=== PATIENT | female | born 1965 | race Caucasian/White ===

== ENCOUNTER 2020-09-28 10:08 | Emergency (ER) | payer OTHER ==
[~2020-09-28] VITALS: Ht 167.6 cm; Wt 99.8 kg
[2020-09-28] MEDS ORDERED: ONDANSETRON HCL INJ 2MG/ML 2ML 2 MG/ML VIAL IV STA (11:08)
[2020-09-28] MEDS ORDERED: KETOROLAC TROMETHAMINE 30 MG/ML VIAL IV STA (11:08)
[2020-09-28] MEDS ORDERED: SODIUM CHLORIDE 0.9% 1000ML 1,000 ML IV STA (11:08)
[2020-09-28] MEDS ORDERED: SODIUM CHLORIDE FLUSH 10 ML SYR INJ PRN (11:15)
[2020-09-28] MEDS ORDERED: IOPAMIDOL 370 MG/ML 200 ML INFUS..BTL INJ ONE (11:25)
[2020-09-28] MEDS ORDERED: SODIUM CHLORIDE 0.9% 50ML 50 ML ONE (11:26)
[2020-09-28] MEDS ORDERED: MORPHINE SULFATE INJ 4 MG/ML INJ 1ML ONE (11:27)
[2020-09-28] MEDS ORDERED: KETOROLAC TROMETHAMINE 30 MG/ML VIAL ONE (11:27)
[2020-09-28] MEDS ORDERED: MORPHINE SULFATE INJ 4 MG/ML INJ 1ML IV ONE (11:45)
--- NOTE | 2020-09-28 11:53 | NUR ---
PT DID NOT WANT TO CHANGE TO GOWN, PT ONLY WANTED IV IN SPOT SHE WAS "POINTING TOO" WHICH WAS DONE FOR PT SATISFACTION WITH ONE STICK SUCCESSFUL TO LEFT LATERAL AC. PT VERY DEMANDING TO BED POSITION, BLANKET POSITION. PT STATING THAT HER PAIN IS WORSE THAN "ANY OTHER PERSON ALIVE ARIGHT NOW." PT WITH EYES CLOSED RESTING COMFORTABLLY. APPEARS IN NO DISTRESS.
--- NOTE | 2020-09-28 12:51 | Diagnostic Imaging Report ---
EXAM: CT Abdomen and Pelvis WITHOUT contrast INDICATION: Sharp pain in the right lower quadrant COMPARISON: None. TECHNIQUE: Abdomen and pelvis were scanned utilizing a multidetector helical scanner from the lung base to the pubic symphysis without administration of IV contrast. Absence of intravenous contrast decreases sensitivity for detection of focal lesions and vascular pathology. Coronal and sagittal reformations were obtained. Routine protocol was performed. IV CONTRAST: None ORAL CONTRAST: None COMPLICATIONS: None RADIATION DOSE: Total DLP: 814 mGy*cm Estimated effective dose: (DLP x 0.015 x size factor) mSv CTDIvol has been reviewed. It is below the limits set by the Radiation Protocol Committee (RPC). Dose modulation, iterative reconstruction, and/or weight based adjustment of the mA/kV was utilized to reduce the radiation dose to as low as reasonably achievable. FINDINGS: LINES and TUBES: None. LOWER THORAX: There is small bilateral pleural effusion with superimposed bibasilar atelectasis. There is mild to moderate cardiomegaly. HEPATOBILIARY: No focal hepatic lesions. No biliary ductal dilation. GALLBLADDER: There are cholecystectomy clips. SPLEEN: No splenomegaly. PANCREAS: No focal masses or ductal dilatation. ADRENALS: No adrenal nodules KIDNEYS/URETERS: No hydronephrosis. No cystic or solid mass lesions. No stones. There is nonspecific bilateral perinephric fat stranding. GI TRACT: No abnormal distention, wall thickening, or evidence of bowel obstruction. There are diverticula within the colon without evidence of diverticulitis. Appendix is normal. PELVIC ORGANS/BLADDER: Unremarkable. LYMPH NODES: No lymphadenopathy. VESSELS: There is moderate atherosclerotic disease in the aorta and major arterial branches. PERITONEUM / RETROPERITONEUM: There is diffuse ed appearance of the mesenteric fat. No free air or fluid. Linear hypodensity in the right lower quadrant (series 301 image 47) likely represents dropped cholecystectomy clips. BONES: There are degenerative changes in the spine. SOFT TISSUES: There is diffuse anarsarca. IMPRESSION: 1. No acute intra-abdominal findings identified. No obstructive renal or ureteral stones bilaterally. 2. Partially imaged heart demonstrates cardiomegaly with findings suggestive of fluid overload state: Small bilateral pleural effusion, diffuse anasarca and ed appearance of the mesenteric fat likely from vascular engorgement/congestion. Signed by: Abram Sorenson MD on 09/28/2020 12:47 PM
--- NOTE | 2020-09-28 12:58 | Emergency Department Note ---
History of Present Illnes History of Present Illness Chief Complaint: rlq pain History of Present Illness This is a 55 year old female. was doing well until 5 months ago then fell then every since pt had ambulatory dysfunction. then intermittent chronic rlq pain then 1 week ago gradual onset of rlq pain Historian: Patient Arrival Mode: Car History limited by: condition of the patient (normal) Bone Tender Required: No Onset (how long ago): week(s) (1) Location: see above Quality: sharp Radiation: Reports non-radiation, Reports back Severity: moderate Onset quality: gradual Duration (how long): week(s) (1) Timing of current episode: constant Progression: worsening Chronicity: recurrent Context: Denies recent illness, Denies recent surgery, Denies recent immobilization, Denies recent travel, Denies trauma/injury, Denies new medications, Denies hx of DVT/PE, Denies non-compliance w/ medications Relieving factors: rest Exacerbating factors: movement Associated symptoms: Reports malaise Treatments prior to arrival: none Past Medical/Family History Physician Review I have reviewed the patient's past medical and family history. Any updates have been documented here. Past Medical History Recent Fever: No Clinical Suspicion of Infectio: No New/Unexplained Change in Ment: No Past Medical History: Hypertension, Hypothyroidism Past Surgical History: None Social History Smoking Cessation: Unknown if ever smoked Counseling Performed: No Alcohol Use: None Any Illegal Drug Use: No Physically hurt or threatened: No Other Any Pre-Existing Lines (PICC,: No Review of Systems Review of Systems Constitutional: Reports no symptoms EENTM: Reports no symptoms Cardiovascular: Reports no symptoms Respiratory: Reports no symptoms Gastrointestinal: Reports as per HPI Genitourinary: Reports no symptoms Musculoskeletal: Reports as per HPI Integumentary: Reports no symptoms Neurological: Reports no symptoms Psychological: Reports no symptoms Endocrine: Reports no symptoms Hematological/Lymphatic: Reports no symptoms Review of other systems: All other systems negative Physical Exam Related Data Allergies: Coded Allergies: No Known Allergies (Unverified , 09/28/20) Triage Vital Signs Vital Signs Date Time Temp Pulse Resp B/P (MAP) Pulse Ox O2 Delivery O2 Flow Rate FiO2 09/28/20 10:20 98.1 71 16 212/108 98 Vital signs reviewed: Yes Physical Exam CONSTITUTIONAL Constitutional: Present well-developed, Present well-nourished HENT HENT: Present normocephalic, Present atraumatic, Present oropharynx clear/moist, Present nose normal HENT L/R: Present left ext ear normal, Present right ext ear normal EYES Eyes: Reports PERRL, Reports conjunctivae normal NECK Neck: Present ROM normal PULMONARY Pulmonary: Present effort normal, Present breath sounds normal CARDIOVASCULAR Cardiovascular: Present regular rhythm, Present heart sounds normal, Present capillary refill normal, Present normal rate GASTROINTESTINAL Abdominal: Present soft, Present bowel sounds normal, Present tender (rlq), Present guarding; Absent rebound GENITOURINARY Genitourinary: Present exam deferred SKIN Skin: Present warm, Present dry MUSCULOSKELETAL Musculoskeletal: Present ROM normal NEUROLOGICAL Neurological: Present alert, Present oriented x 3, Present no gross motor or sensory deficits PSYCHOLOGICAL Psychological: Present mood/affect normal, Present judgement normal Results Laboratory Lab results reviewed: Yes Laboratory comments cbc nl, bmp nl except elevated bun, cr, glucose Imaging Imaging results reviewed: Yes Impressions [place] [id number] Patient Name: OLESYA GLASS MR #: [id number] : 1965 Age/Sex: 55/F Req #: [id number] Adm Physician: Ordered by: THAD DAILY Report #: [id number] Location: [facility] Room/Bed: Procedure: [id number] HOPD/CT ABD/PEL WO CONTRAST-HOPD Exam Date: 09/28/20 Exam Time: 1205 REPORT STATUS: Signed EXAM: CT Abdomen and Pelvis WITHOUT contrast INDICATION: Sharp pain in the right lower quadrant COMPARISON: None. TECHNIQUE: Abdomen and pelvis were scanned utilizing a multidetector helical scanner from the lung base to the pubic symphysis without administration of IV contrast. Absence of intravenous contrast decreases sensitivity for detection of focal lesions and vascular pathology. Coronal and sagittal reformations were obtained. Routine protocol was performed. IV CONTRAST: None ORAL CONTRAST: None COMPLICATIONS: None RADIATION DOSE: Total DLP: 814 mGy*cm Estimated effective dose: (DLP x 0.015 x size factor) mSv CTDIvol has been reviewed. It is below the limits set by the Radiation Protocol Committee (RPC). Dose modulation, iterative reconstruction, and/or weight based adjustment of the mA/kV was utilized to reduce the radiation dose to as low as reasonably achievable. FINDINGS: LINES and TUBES: None. LOWER THORAX: There is small bilateral pleural effusion with superimposed bibasilar atelectasis. There is mild to moderate cardiomegaly. HEPATOBILIARY: No focal hepatic lesions. No biliary ductal dilation. GALLBLADDER: There are cholecystectomy clips. SPLEEN: No splenomegaly. PANCREAS: No focal masses or ductal dilatation. ADRENALS: No adrenal nodules KIDNEYS/URETERS: No hydronephrosis. No cystic or solid mass lesions. No stones. There is nonspecific bilateral perinephric fat stranding. GI TRACT: No abnormal distention, wall thickening, or evidence of bowel obstruction. There are diverticula within the colon without evidence of diverticulitis. Appendix is normal. PELVIC ORGANS/BLADDER: Unremarkable. LYMPH NODES: No lymphadenopathy. VESSELS: There is moderate atherosclerotic disease in the aorta and major arterial branches. PERITONEUM / RETROPERITONEUM: There is diffuse ed appearance of the mesenteric fat. No free air or fluid. Linear hypodensity in the right lower quadrant (series 301 image 47) likely represents dropped cholecystectomy clips. BONES: There are degenerative changes in the spine. SOFT TISSUES: There is diffuse anarsarca. IMPRESSION: 1. No acute intra-abdominal findings identified. No obstructive renal or ureteral stones bilaterally. 2. Partially imaged heart demonstrates cardiomegaly with findings suggestive of fluid overload state: Small bilateral pleural effusion, diffuse anasarca and ed appearance of the mesenteric fat likely from vascular engorgement/congestion. Signed by: Freddie Ge MD on 09/28/2020 12:47 PM Dictated By: FREDDIE GE MD [id number] Transcribed By: KLAUS on 09/28/20 1247 COPY TO: THAD DAILY~ Assessment & Plan Medical Decision Making MDM symptoms resolved Assessment & Plan Final Impression: (1) Acute abdominal pain (2) Chronic abdominal pain Depart Disposition: HOME, SELF-CARE Last Vital Signs Date Time Temp Pulse Resp B/P (MAP) Pulse Ox O2 Delivery O2 Flow Rate FiO2 09/28/20 11:58 166/87 09/28/20 10:20 98.1 71 16 98 Home Meds Active Scripts Cyclobenzaprine Hcl (FLEXERIL) 5 Mg Tablet, 10 MG PO Q8H PRN for MODERATE PAIN (4-6), #30 TAB take after toradol to control pain if need be Prov:DAILYTHADCRISTAL MONTILLA 09/28/20 Ketorolac Tromethamine (TORADOL) 10 Mg Tablet, 10 MG PO Q6H PRN for MODERATE PAIN (4-6), #20 TAB Prov:KILLIANTHADCRISTAL MONTILLA 09/28/20 Medications in the ED Sodium Chloride 10 ml PRN PRN INJ IV SITE FLUSH Last administered on 09/28/20at 11:27; Admin Dose 10 ML; Start 09/28/20 at 11:15; Stop 10/28/20 at 11:14 Sodium Chloride 1,000 ml @ 1,000 mls/hr Q1H STAT IV Last administered on 09/28/20at 11:26; Admin Dose 1,000 MLS/HR; Start 09/28/20 at 11:08; Stop 09/28/20 at 12:07; Status DC Ketorolac Tromethamine 30 mg ONCE STAT IV Last administered on 09/28/20at 11:26; Admin Dose 30 MG; Start 09/28/20 at 11:08; Stop 09/28/20 at 11:22; Status DC Ondansetron HCl 4 mg NOW STAT IV Last administered on 09/28/20at 11:27; Admin Dose 4 MG; Start 09/28/20 at 11:08; Stop 09/28/20 at 11:23; Status DC Morphine Sulfate 4 mg ONCE ONCE IV Last administered on 09/28/20at 11:31; Admin Dose 4 MG; Start 09/28/20 at 11:45; Stop 09/28/20 at 11:46; Status DC Iopamidol 74,000 mg STK-MED ONCE INJ ; Start 09/28/20 at 11:25; Stop 09/28/20 at 11:22; Status DC Sodium Chloride 50 ml @ ud STK-MED ONCE .ROUTE ; Start 09/28/20 at 11:26; Stop 09/28/20 at 11:22; Status DC Morphine Sulfate 4 mg STK-MED ONCE .ROUTE ; Start 09/28/20 at 11:27; Stop 09/28/20 at 11:22; Status DC Ketorolac Tromethamine 30 mg STK-MED ONCE .ROUTE ; Start 09/28/20 at 11:27; Stop 09/28/20 at 11:22; Status DC THAD DAILY Sep 28, 2020 12:58
[2020-09-28] MEDS ORDERED: KETOROLAC TROME10 MG PO (13:35)
[2020-09-28] MEDS ORDERED: CYCLOBENZAPRINE5 MG PO (13:35)
== END 2020-09-28 13:44 | disposition home or self-care (01) ==
LOC: FSED 10:28
DX: R10.31 Right lower quadrant pain (principal); G89.29 Other chronic pain; I10 Essential (primary) hypertension; E03.9 Hypothyroidism, unspecified
CPT/HCPCS: 74176; 80048; 80076; 81003; 99284; J1885; J2270 ×2; J2405; J7030; Q9967